=== PATIENT | female | born 1955 ===

== ENCOUNTER 2016-09-30 14:55 | Emergency (ER) | payer SELFPAY ==
[2016-09-30 15:12] VITALS: BP 142/83; PULSE 77; TEMP 98.5; O2SAT 98; BMI 25.4
--- NOTE | 2016-09-30 15:29 | ED PDOC ---
Arrival/HPI - General Chief Complaint: Trauma Time Seen by Provider: 09/30/16 15:15 Historian: Patient - History of Present Illness Narrative History of Present Illness (Text): 09/30/16 15:26 61yo female with no PMHx who present with complaint of right sided ribs pain and left knee pain. States she stepped into a hole yesterday and fell foreward, landing on her right breast. States she took Aleve yesterday, but pain became worse today. Rib pain is worse with right arm abduction and on deep inspiration. Denies hitting her head anywhere. Denies LOC, SOB, nausea, vomiting , any other complaint. Past Medical History - Provider Review Nursing Documentation Reviewed: Yes - Infectious Disease Hx of Infectious Diseases: None - Psychiatric Hx Substance Use: No - Surgical History Hx Appendectomy: Yes (as a child) - Anesthesia Hx Anesthesia: Yes Hx Anesthesia Reactions: No Family/Social History - Physician Review Nursing Documentation Reviewed: Yes Family/Social History: Unknown Family HX Smoking Status: Never Smoked Hx Alcohol Use: No Hx Substance Use: No Allergies/Home Meds Allergies/Adverse Reactions: Allergies Penicillins Allergy (Verified 09/30/16 15:13) ANAPHYLAXIS Review of Systems - Physician Review All systems were reviewed & negative as marked: Yes - Review of Systems Constitutional: Normal Eyes: Normal ENT: Normal Respiratory: Normal Cardiovascular: Normal Gastrointestinal: Normal Genitourinary Female: Normal Musculoskeletal: Arthralgias (Right ribs and left knee) Skin: Normal Neurological: Normal Endocrine: Normal Hemo/Lymphatic: Normal Psychiatric: Normal Physical Exam Vital Signs Reviewed: Yes Vital Signs Temp Pulse Resp BP Pulse Ox 09/30/16 16:35 16 98 09/30/16 15:12 98.5 F 77 19 142/83 98 Temperature: Afebrile Blood Pressure: Normal Pulse: Regular Respiratory Rate: Normal Appearance: Positive for: Well-Appearing, Non-Toxic, Comfortable Pain Distress: None Mental Status: Positive for: Alert and Oriented X 3 - Systems Exam Head: Present: Atraumatic, Normocephalic Pupils: Present: PERRL Extroacular Muscles: Present: EOMI Conjunctiva: Present: Normal Mouth: Present: Moist Mucous Membranes Neck: Present: Normal Range of Motion Respiratory/Chest: Present: Clear to Auscultation, Good Air Exchange, Tender to Palpation (Lateral and anterior right ribs). No: Respiratory Distress, Accessory Muscle Use, Wheezes, Decreased Breath Sounds, Rales, Retracting, Rhonchi, Tachypneic Cardiovascular: Present: Regular Rate and Rhythm, Normal S1, S2. No: Murmurs Abdomen: Present: Normal Bowel Sounds. No: Tenderness, Distention, Peritoneal Signs Back: Present: Normal Inspection Upper Extremity: Present: Normal Inspection. No: Cyanosis, Edema Lower Extremity: Present: NORMAL PULSES, Tenderness (LEft knee), Swelling (Mild swelling of anterior left knee noted), Neurovascularly Intact, Capillary Refill < 2 s. No: Edema, Cyanosis, Normal ROM (Limited on flexion secondary to pain), Erythema, Deformity, Temperature Abnormalties Neurological: Present: GCS=15, CN II-XII Intact, Speech Normal Skin: Present: Warm, Dry, Normal Color. No: Rashes Psychiatric: Present: Alert, Oriented x 3, Normal Insight, Normal Concentration Medical Decision Making ED Course and Treatment: 09/30/16 18:01 Right ribs xray and Left knee xray - No acute finding Result was DW the pt. She was not in any distress in ED. No hypoxic. Advised to apply warm compress to area. To RICE knee and referred to her PMD/ortho. TRT ED for any new or worsening symptoms. - RAD Interpretation Radiology Orders: 09/30/16 15:16 RIBS RIGHT & PA CHEST [RAD] Stat 09/30/16 15:52 KNEE WITH PATELLA LEFT 3 VIEW [RAD] Stat - Medication Orders Current Medication Orders: Discontinued Medications Cyclobenzaprine HCl (Flexeril) 10 mg PO STAT STA Stop: 09/30/16 15:19 Last Admin: 09/30/16 15:43 Dose: 10 mg Ketorolac Tromethamine (Toradol) 60 mg IM STAT STA Stop: 09/30/16 15:19 Last Admin: 09/30/16 15:42 Dose: 60 mg Disposition/Present on Arrival - Present on Arrival Any Indicators Present on Arrival: No History of DVT/PE: No History of Uncontrolled Diabetes: No Urinary Catheter: No History of Decub. Ulcer: No History Surgical Site Infection Following: None - Disposition Have Diagnosis and Disposition been Completed?: Yes Diagnosis: Knee sprain, Rib sprain Disposition: HOME/ ROUTINE Disposition Time: 16:25 Patient Plan: Discharge Condition: STABLE Discharge Instructions (ExitCare): Knee Sprain (ED), Rib Contusion (ED) Additional Instructions: Follow up with your Doctor/orthopedist Return to ED for any new or worsening symptoms Prescriptions: Cyclobenzaprine [Cyclobenzaprine HCl] 10 mg PO BID #10 tab Naproxen [Naprosyn] 500 mg PO BID #20 tablet traMADol [Ultram] 50 mg PO TID #10 tab Referrals: Jodie Hernandez MD [Staff Provider] - Follow up with primary
[2016-09-30 16:36] VITALS: RESP 16
--- NOTE | 2016-09-30 16:42 | RAD ---
PROCEDURE: Radiographs of the Chest and Right Ribs. HISTORY: ribs pain s/p trauma COMPARISON: None available. TECHNIQUE: Frontal radiograph of the chest and multiple oblique radiographs of the right ribs were obtained. FINDINGS: RIGHT RIBS: No fracture or focal lesion visualized. LUNGS: Clear. PLEURA: No pneumothorax or pleural fluid. CARDIOVASCULAR: Normal sized heart. No pulmonary vascular congestion. OTHER FINDINGS: None. IMPRESSION: Unremarkable radiographs of the chest and right ribs. No right rib fracture.
--- NOTE | 2016-09-30 16:44 | RAD ---
PROCEDURE: Left Knee Radiographs. HISTORY: Pain. COMPARISON: None. FINDINGS: BONES: Normal. No fracture. JOINTS: Normal. No osteoarthritis. JOINT EFFUSION: None. OTHER FINDINGS: None. IMPRESSION: Normal radiographs of the left knee.
== END 2016-09-30 16:36 | disposition home or self-care (01) ==
LOC: ED 14:55
DX: S23.41XA Sprain of ribs, initial encounter (principal); S83.92XA Sprain of unspecified site of left knee, initial encounter; W01.0XXA Fall on same level from slipping, tripping and stumbling without subsequent striking against object, initial encounter; Y92.89 Other specified places as the place of occurrence of the external cause
CPT/HCPCS: 71101; 73562; 96372; 99284; J1885